=== PATIENT | male | born 1975 | race Caucasian/White ===

== ENCOUNTER 2017-04-21 19:58 | Inpatient (IN) ==
[2017-04-21] MEDS ORDERED: Vancomycin 2,000 MG in D5% in Water 500 ML IVPB ONE (20:18)
[2017-04-21] MEDS: 0.9 % Sodium Chloride 1,000 ML IVC SCH ×2 (21:12→21:25)
[2017-04-21 21:28] LABS: Basophils % 0.4 %; Eosinophils % 0.4 %; Hematocrit 47.7 % (37.5-50.1); Hemoglobin 16.1 g/dL (12.9-16.9); Immature Granulocytes % 0.7 % (0-4); Lymphocytes # 1.4 K/mcL (0.6-4.6); Lymphocytes % 14.5 %; Mean Corpuscular HGB Conc 33.8 g/dL (31.6-35.5); Mean Corpuscular Hemoglobin 28.9 pg (28.0-33.3); Mean Corpuscular Volume 85.5 fL (83.0-100.0); Mean Platelet Volume 9.4 fL (9.4-12.4); Monocytes # 0.9 K/mcL (0.0-1.3); Monocytes % 9.1 %; Platelet Count 272 K/mcL (140-400); Red Blood Count 5.58 M/mcL (4.19-5.50); Red Cell Distribution Width 13.7 % (11.5-14.5); Segmented Neutrophils % 74.9 %
[2017-04-21 21:31] LABS: INR 1.1; Prothrombin Time 12.1 Seconds (9.4-12.1)
[2017-04-21 21:34] LABS: Activated Partial Thrombo Time 31.2 Seconds (26.0-36.0)
[2017-04-21 21:42] LABS: Albumin 4.2 g/dL (3.5-5.0); Bilirubin,Direct 0.4 mg/dL (0.0-0.5); Bilirubin,Indirect 0.5 mg/dL (0.0-1.2); Bilirubin,Total 0.9 mg/dL (0.2-1.2); Calcium 9.4 mg/dL (8.6-10.8); Globulin 4.2 g/dL (2.4-3.5); Magnesium 2.6 mg/dL (1.6-2.6); Phosphorous 3.8 mg/dL (2.3-4.7); Potassium 3.7 mEq/L (3.5-4.5); Total Protein 8.4 g/dL (6.0-8.3)
[2017-04-21] MEDS ORDERED: 0.9 % Sodium Chloride 1,000 ML IVC ONE (22:13)
--- NOTE | 2017-04-21 22:59 | Emergency Department Note ---
Disposition Clinical Impression: Dehydration, Acute kidney insufficiency Diarrhea Qualifiers: Diarrhea type: unspecified type Qualified Code(s): R19.7 - Diarrhea, unspecified Hypotension Qualifiers: Hypotension type: unspecified hypotension type Qualified Code(s): I95.9 - Hypotension, unspecified Disposition: Admitted As Inpatient Condition: Good Referrals: Ollie Hinojosa MD [Primary Care Provider] - Forms: Work/School Release, ED Satisfaction Letter Time of Disposition: 23:06 General Adult HPI - General Chief complaint: ED General Medical Stated complaint: Hypotension Time Seen by Provider: 04/21/17 20:14 Source: patient, family Mode of arrival: ambulatory Limitations: no limitations Nursing Notes Reviewed: Yes Vital Signs Reviewed: Yes - History of Present Illness HPI Narrative: Patient presents emergency room from work today for evaluation of nausea vomiting diarrhea and lightheadedness along with feeling very weak. Patient has had diarrhea for the last 2-3 days it has been multiple times at the biliary enlarged water volume. Has not been able to eat or drink anything since that event. Denies any changes in medication. He is a poorly controlled hypertensive at this time. Denies any trauma or injury. Denies fevers chills chest pain shortness of breath headache vision changes but has had persistent nausea vomiting diarrhea. Onset (ago): day(s) Location: abdomen Radiation: non-radiation Pain Severity: mild Pain Scale: 0 Quality: aching Consistency: constant Improves with: nothing Worsens with: movement Associated symptoms: Reports: fever/chills, loss of appetite, malaise, nausea/ vomiting, weakness Treatments Prior to Arrival: none - Related Data Allergies Allergy/AdvReac Type Severity Reaction Status Date / Time Penicillins Allergy See Verified 04/21/17 20:00 Comments All systems ED: reviewed and negative except as stated. Review of Systems: As Per HPI Constitutional: Reports: weakness. Denies: fever, chills Cardiovascular: Denies: chest pain, palpitations, dyspnea on exertion, orthopnea , edema Respiratory: Denies: cough, dyspnea, wheezes, hemoptysis Gastrointestinal: Reports: abdominal pain, nausea, diarrhea. Denies: vomiting, constipation Genitourinary: Denies: urgency, dysuria, frequency Musculoskeletal: Denies: back pain, neck pain Neurological: Denies: headache, weakness Endocrine: Reports: fatigue Past Medical History - Past Medical History Attestation: Yes The following information was validated with the patient. Source: patient Medical history: Reports: DVT, hypertension Psychiatric history: Reports: no psych history - Social History Smoking Status: Never smoker Smokeless Tobacco Status: No Alcohol use: Reports: none Drug use: Reports: none Physical Exam - General Limitations: no limitations General appearance: alert, in no apparent distress - Neck Neck exam: Present: normal inspection, full ROM, trachea midline - Chest Chest inspection: Present: normal inspection, symmetric chest wall rise - Respiratory Respiratory exam: Present: normal lung sounds bilaterally - Cardiovascular Cardiovascular exam: Present: regular rate, normal rhythm, normal heart sounds - Abdominal Exam Abdominal exam: Present: soft, Non-Tender, normal bowel sounds. Absent: tenderness, distention, guarding, rebound, rigidity, Jones's sign, Rovsing's sign, tenderness at McBurney's Point - Extremities Exam Extremities exam: Present: normal inspection, full ROM, normal capillary refill. Absent: tenderness, pedal edema, joint swelling, calf tenderness - Back Exam Back exam: Present: normal inspection, full ROM. Absent: CVA tenderness (R), CVA tenderness (L) - Neurological Exam Neurological exam: Present: alert, oriented X3, CN II-XII intact, normal gait - Skin Skin exam: Present: warm, dry, intact, normal color Course Course Narrative: Patient seen and examined the time of arrival. See history of present illness. 42-year-old male presents to emergency room with complaint of weakness lightheadedness and hypotension. His blood pressure work was 60/40. Patient has not been able to eat or drink anything over the last several days secondary to diarrhea that has been poorly controlled. Is also intermittent nausea and some vomiting. Denies recent travel or trauma. Denies any changes in his medications. He does not take his medications as prescribed. Patient denies fevers chills chest pain shortness of breath headache vision changes at this point. His other symptoms of been persistent for 2-3 days. Patient says that he has not ate or drank anything really in the last 24 hours. Physical exam shows a well-appearing male. Large presentation. He does not appear to be any specific distress. His heart rate and vital signs are otherwise stable. Blood pressure is repeated in the room for the initial blood pressure being 108/75. Patient denies any other symptoms at this point lungs are clear heart is regular abdomen is soft she does have colicky abdominal pain at this time. Denies any bruising trauma injuries. Did not have a syncopal event 2 today. EKG collected the triage process showing sinus rhythm with stable morphology comparison EKG done on 07/01/03 patient review the presentation symptoms and history. He again describes generalized malaise weakness belly discomfort and persistent diarrhea. He also described the weakness today and tachycardia when he went to be evaluated at the health providers office at his job. Patient will be evaluated and provided with fluids by IV access here today a CBC chemistry urinalysis chest x-ray and EKG along with troponin ordered at this point. We will continue to monitor his treatment course is completed. Patient will most likely need admission if symptoms do not get better or we have definitive etiology to his symptom presentation this time. Patient's code was explained at this point - Reevaluation(s) Reevaluation #1: Patient found to have relatively normal laboratory workup at this time except for significantly elevated creatinine with decreased GFR. Patient has had almost a tripling in his creatinine at this time based on the lab today collected by his kidney doctor several weeks to several months ago. Patient provided with a second liter of fluids here this time. He feels better. He has not had an episode of diarrhea while here. The rest of his laboratory workup was otherwise benign. Patient not discussed in length at the bedside my recommendation for admission secondary to the dehydration causing kidney insufficiency. Patient understands this and appreciates our concern. After a conversation with his family he decided that it would be better for him to stay in the hospital for evaluation. Hospitalist patient this time for what appears to be dehydration secondary to diarrhea causing acute kidney insufficiency at this point. He is currently under the take care of Dr. Pichardo. No further issues or recommendations at this time. Disposition pending admission process. Again patient does not have any specific physical exam findings are concerning for surgical pathology. No imaging ordered at this time Time: 23:03 Reevaluation #2: Patient discussed with the hospitalist Dr. Egan. We reviewed the presentation symptoms medical intervention as well as evaluation. He recommended adding another 2 L of fluid and air be happy to start maintenance fluids on the floor this time. Patient is otherwise resting comfortably with stable examination presentation. We will continue monitoring into the admission process is completed Time: 23:14 Vital Signs Temperature 98.0 F 04/21/17 20:00 Pulse Rate 100 04/21/17 20:00 Respiratory Rate 16 04/21/17 20:00 Blood Pressure 87/64 04/21/17 20:00 O2 Sat by Pulse Oximetry 97 04/21/17 20:00 Temperature 98.0 F 04/21/17 20:00 Pulse Rate 95 04/21/17 21:17 Respiratory Rate 16 04/21/17 21:17 Blood Pressure 108/76 04/21/17 21:17 O2 Sat by Pulse Oximetry 95 04/21/17 21:17 Oxygen Delivery Oxygen Delivery Room Air Medical Decision Making - MDM Narrative Medical decision making narrative: Acute kidney insufficiency, diarrhea, dehydration - Medical Records Medical records reviewed: Yes I reviewed the patient's medical records. - Lab Data Lab results reviewed: Yes I reviewed the patient's lab results. Result diagrams: 04/21/17 21:13 04/21/17 21:13 Lab Results 04/21/17 04/21/17 04/21/17 Range/Units 21:13 21:13 21:13 WBC 9.4 (4.3-11.1) K/mcL RBC 5.58 H (4.19-5.50) M/mcL Hgb 16.1 (12.9-16.9) g/dL Hct 47.7 (37.5-50.1) % MCV 85.5 (83.0-100.0) fL MCH 28.9 (28.0-33.3) pg MCHC 33.8 (31.6-35.5) g/dL RDW 13.7 (11.5-14.5) % Plt Count 272 (140-400) K/mcL MPV 9.4 (9.4-12.4) fL Immature Gran % 0.7 (0-4) % Seg Neutrophils % 74.9 % Lymphocytes % 14.5 % Monocytes % 9.1 % Eosinophils % 0.4 % Basophils % 0.4 % Neutrophils # 7.0 (1.6-8.9) K/mcL Lymphocytes # 1.4 (0.6-4.6) K/mcL Monocytes # 0.9 (0.0-1.3) K/mcL Eosinophils # 0.0 (0.0-0.6) K/mcL Basophils # 0.0 (0.0-0.2) K/mcL PT 12.1 (9.4-12.1) Seconds INR 1.1 APTT 31.2 (26.0-36.0) Seconds Sodium 131 L (136-145) mEq/L Potassium 3.7 (3.5-4.5) mEq/L Chloride 99 (98-109) mEq/L Carbon Dioxide 18 L (19-29) mEq/L BUN 50 H (8-26) mg/dL Creatinine 3.61 H (0.72-1.25) mg/dL Est GFR ( Amer) 23 L (> 60) Est GFR (Non-Af Amer) 19 L (> 60) BUN/Creatinine Ratio 14 (6-26) Glucose 111 H (70-99) mg/dL Calculated Osmolality 286 (280-300) Lactic Acid (0.5-2.2) mmol/L Calcium 9.4 (8.6-10.8) mg/dL Phosphorus 3.8 (2.3-4.7) mg/dL Magnesium 2.6 (1.6-2.6) mg/dL Total Bilirubin 0.9 (0.2-1.2) mg/dL Direct Bilirubin 0.4 (0.0-0.5) mg/dL Indirect Bilirubin 0.5 (0.0-1.2) mg/dL AST 55 H (5-34) Units/L ALT 57 H (0-55) Units/L Alkaline Phosphatase 77 (38-126) Units/L Troponin I (0-0.03) ng/mL Serum Total Protein 8.4 H (6.0-8.3) g/dL Albumin 4.2 (3.5-5.0) g/dL Globulin 4.2 H (2.4-3.5) g/dL Albumin/Globulin Ratio 1.0 L (1.1-2.2) 04/21/17 04/21/17 Range/Units 21:13 21:13 WBC (4.3-11.1) K/mcL RBC (4.19-5.50) M/mcL Hgb (12.9-16.9) g/dL Hct (37.5-50.1) % MCV (83.0-100.0) fL MCH (28.0-33.3) pg MCHC (31.6-35.5) g/dL RDW (11.5-14.5) % Plt Count (140-400) K/mcL MPV (9.4-12.4) fL Immature Gran % (0-4) % Seg Neutrophils % % Lymphocytes % % Monocytes % % Eosinophils % % Basophils % % Neutrophils # (1.6-8.9) K/mcL Lymphocytes # (0.6-4.6) K/mcL Monocytes # (0.0-1.3) K/mcL Eosinophils # (0.0-0.6) K/mcL Basophils # (0.0-0.2) K/mcL PT (9.4-12.1) Seconds INR APTT (26.0-36.0) Seconds Sodium (136-145) mEq/L Potassium (3.5-4.5) mEq/L Chloride (98-109) mEq/L Carbon Dioxide (19-29) mEq/L BUN (8-26) mg/dL Creatinine (0.72-1.25) mg/dL Est GFR ( Amer) (> 60) Est GFR (Non-Af Amer) (> 60) BUN/Creatinine Ratio (6-26) Glucose (70-99) mg/dL Calculated Osmolality (280-300) Lactic Acid 2.2 (0.5-2.2) mmol/L Calcium (8.6-10.8) mg/dL Phosphorus (2.3-4.7) mg/dL Magnesium (1.6-2.6) mg/dL Total Bilirubin (0.2-1.2) mg/dL Direct Bilirubin (0.0-0.5) mg/dL Indirect Bilirubin (0.0-1.2) mg/dL AST (5-34) Units/L ALT (0-55) Units/L Alkaline Phosphatase (38-126) Units/L Troponin I 0.02 (0-0.03) ng/mL Serum Total Protein (6.0-8.3) g/dL Albumin (3.5-5.0) g/dL Globulin (2.4-3.5) g/dL Albumin/Globulin Ratio (1.1-2.2) - EKG Data EKG #1 EKG attestation: Yes I reviewed and interpreted this EKG. EKG shows normal: sinus rhythm, axis, intervals, QRS complexes, ST-T waves Rate: normal Rhythm: NSR [place]/QRS: normal Voltage: c/w LVH T wave inversions noted in: I, aVL When compared to previous EKG there are: no significant changes Interpretation: no acute changes, unchanged when compared to prior tracing (date ) (07/01/03)
[2017-04-21] MEDS ORDERED: 0.9 % Sodium Chloride 1,000 ML IVC SCH (23:15)
[2017-04-21] MEDS ORDERED: Naloxone 0.4 MG/ML INJ IVP PRN (23:59)
[2017-04-21] MEDS ORDERED: Ondansetron ODT 4 MG TAB.RAPDIS SL PRN (23:59)
--- NOTE | 2017-04-22 00:06 | Internal Med History&Physical ---
<Bubba Holt - Last Filed: 04/22/17 00:35> Date of Encounter: 04/22/17 Time of Encounter: 00:04 Assessment and Plan (1) Diarrhea Current visit: Yes Status: Acute unclear etiology infectious (viral, bacterial), food poisioning (ate mushrooms at [place] [employer]), no recent travel, sick contacts, antibiotic use Tachycardic on admission. Does not need any other serous criteria White blood cell count normal Afebrile hgb stable Patient eating [employer] burger and fries when entering room most likely viral gastroenteritis Plan: IV fluids,fbot, regular diet, BMP, CBC Stool panel, blood cultures, C. difficile, ova parasite exam GI prophylaxis Will recommend outpatient GI consult and colonoscopy as patient has had multiple bouts of diarrhea in the past. 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 (3) Dehydration Current visit: Yes Status: Acute Second issue diarrhea Plan: Fluids. (4) Hypotension Current visit: Yes Status: Acute Patient reports blood pressure was 60/40 at work On arrival to the ER blood pressure was 87/64 Patient has a history of hypertension and is on lisinopril hydrochlorothiazide, amlodipine Secondary to dehydration from diarrhea Plan: IV fluids Hold home BP meds. Qualifiers: Hypotension type: other hypotension type Qualified Code(s): I95.89 - Other hypotension Internal Medicine - H&P: HPI Chief complaint: lightheadedness Admitted From: Home Plans for Post Hospital Care: Home History of present illness: Mr. Almanza is a 42 year old male presents with chief complaint of lightheadedness and hypotension. Patient states for the last 3 days he has had nonstop diarrhea. Reports cramping abdominal pain, tenesmus with reflief once he has bowel movement. States his anus is on fire. Last meal before he started having diarrhea was he ate mushrooms at a state fair and 6 hours later had these symptoms. Patient eating [employer] burger and fries when entering room. Was not in any distress. He denies fever, chills nausea and vomiting, travel, sick contacts. Denies anybody having the same symptoms around him. There is watery , mucousy, and he noticed couple drops of blood this morning. Last diarrhea was this morning. States at work his blood pressure today was 60/40. He has not been able to eat or drink anything in the last 24 hours. Patient also reports syncopal episode about 20-25 minutes. Denies any trauma. Denies recent antibiotic use. Denies previous colonoscopy. Denies family history of GI issues. Patient states he has had this type of diarrhea before but usually self- limiting. He has never been hospitalized for this before. He notices it is associated with eating greasy food. Past Med Surg Social Fam HX - Past Medical History Medical history: hypertension, other (CKD III) Psychiatric history: no psych history - Past Surgical History Surgical History: no surgical history - Social History Smoking Status: Never smoker Smokeless Tobacco Status: No Alcohol use: none Drug use: none - Family History Mother Living Status: Still Living Hx Family Cardiac Disorders: Yes (Hypertension) Brother Living Status: Still Living Hx Family Cardiac Disorders: Yes (Hypertension) Father Hx Family Cardiac Disorders: Yes (Hypertension) Grandfather Hx Family Cardiac Disorders: Yes (Coronary artery disease, hypertension, diabetes) Internal Medicine - H&P: Meds Allergies Penicillins Allergy (Verified 04/21/17 20:00) See Comments All Systems PM: A 10-system review of systems was performed and is negative for pertinent findings except as documented above in the HPI. Review of systems: Constitutional: Denies fever, chills HEENT: Denies headache, vision changes, neck pain, sore throat, rhinorrhea Heart: Denies chest pain palpitations Lungs: denies cough. Reports chronic shortness of breath Abdomen: Cramping abdominal pain with diarrhea. Denies nausea and vomiting Back: Denies back pain Kidney: Denies dysuria, hematuria Extremities: Denies swelling, pain Neuro: Denies numbness, and tingling - Constitutional Vitals: Temp Pulse Resp BP Pulse Ox 98.0 F 95 16 117/69 95 04/21/17 20:00 04/21/17 21:17 04/21/17 23:30 04/21/17 23:30 04/21/17 21:17 - Other Additional findings: General: Obese male Without distress HEENT: Head atraumatic, normocephalic, EOMI, PERRLA, neck nontender to palpation , absent Lymphadenopathy, Moist Mucous Membranes, Heart: Regular rate and rhythm with no murmur Lungs: Clear to auscultation bilaterally Abdomen: Soft nontender, non distended positive bowel sounds Extremities: Absent pedal edema, Neuro: Cranial nerves II through XII intact, sensation equal bilaterally, strength upper and lower extremity 5/5, alert oriented 3 Vascular: Pedal and radial pulses 2 out of 4 Internal Med - H&P Results - Labs CBC & Chem 7: 04/21/17 21:13 04/21/17 21:13 <Kena Duong - Last Filed: 04/22/17 01:08> Date of Encounter: 04/22/17 Internal Medicine - H&P: HPI History of present illness: Mr. Almanza is a 42 year old male All Systems PM: A 10-system review of systems was performed and is negative for pertinent findings except as documented above in the HPI. - Constitutional Vitals: Temp Pulse Resp BP Pulse Ox 98.2 F 90 18 142/59 100 04/22/17 00:33 04/22/17 00:33 04/22/17 00:33 04/22/17 00:33 04/22/17 00:33 Internal Med - H&P Results - Labs CBC & Chem 7: 04/21/17 21:13 04/21/17 21:13 - Attending Attestation 42-year-old male who developed watery diarrhea since yesterday with some diarrhea this morning. Diarrhea mostly watery but with some blood streaking in later episodes. Associated with dizziness and presyncopal episodes. In the ED was found to be dehydrated with acute on chronic kidney injury(sees Dr. Riley). Likely due to prerenal volume loss. ROS 14 point review of systems reviewed as best as possible given presentation. Pertinent positive or negative as per HPI or otherwise reviewed as negative General - AAO x 3 Psych - Appropriate affect/speech. No agitation Eyes - LATONYA. Eye lids intact. No scleral icterus ENT - Oral mucosa pink, dentition intact. External ear clear/dry/intact. No thyromegaly Lymphatics - No cervical/inguinal lympadenopathy Neuro - No gross peripheral or central neuro deficits with intact CN 2-12 exam Heart - Sinus. RRR. S1 and S2 present. No added HS/murmurs appreciated. No elevated JVD appreciated. No calf swellings/erythema Lung - Adequate air entry b/l, No crackes/wheezes appreciated GI - Soft, non-tender. No hepatosplenomegaly/ascities. BS+ - No CVA/suprapubic tenderness or palpable bladder distension Skin - Intact. No rash/petechiae/ecchymosis. Warm extremities MSK - Joints with normal ROM. No joint swellings Hypotension Pre-syncope HUMBERTO - re-renal 2/2 hypovolemia from fluid loss (Diarrhea with decreased PO intake) suspect viral gastroenteritis - IVF, bolus to get 4 L total - check orthostats - hold anti-HTN - monitor diarrhea - stool studies pend
[2017-04-22 01:05] LABS: Bilirubin,Urine Negative (Negative); Blood,Urine Trace (Negative); Clarity,Urine Clear (Clear); Color,Urine Yellow (Yellow); Glucose,Urine (UA) Normal (Normal); Ketones,Urine Negative (Negative); Leukocyte Esterase,Urine Negative (Negative); Nitrite,Urine Negative (Negative); PH,Urine 5.5 pH Units (5.0-8.0); Protein,Urine 30 mg/dL (Neg-Trace); Specific Gravity,Urine 1.025 (1.010-1.025); Urobilinogen,Urine Normal (Normal)
[2017-04-22 01:07] LABS: Squamous Epithelial Cell,Urine Moderate per lpf (None-Few); WBC,Urine 0-3 per hpf (0-3)
[2017-04-22 01:17] LABS: Bacteria,Urine Few per hpf (None-Few); Hyaline Casts,Urine Moderate per lpf (None-Few); Mucus,Urine Moderate (Few)
[2017-04-22] MEDS: 0.9 % Sodium Chloride 1,000 ML IVC SCH ×3 (02:09→21:46)
[2017-04-22 05:21] LABS: Basophils # 0.1 K/mcL (0.0-0.2); Basophils % 0.7 %; Eosinophils # 0.2 K/mcL (0.0-0.6); Eosinophils % 2.3 %; Hematocrit 40.8 % (37.5-50.1); Immature Granulocytes % 0.6 % (0-4); Lymphocytes # 2.1 K/mcL (0.6-4.6); Lymphocytes % 29.9 %; Mean Corpuscular HGB Conc 33.8 g/dL (31.6-35.5); Mean Corpuscular Hemoglobin 29.2 pg (28.0-33.3); Mean Corpuscular Volume 86.4 fL (83.0-100.0); Mean Platelet Volume 9.7 fL (9.4-12.4); Monocytes # 0.9 K/mcL (0.0-1.3); Monocytes % 12.4 %; Neutrophils # 3.8 K/mcL (1.6-8.9); Platelet Count 210 K/mcL (140-400); Red Blood Count 4.72 M/mcL (4.19-5.50); Red Cell Distribution Width 13.9 % (11.5-14.5); Segmented Neutrophils % 54.1 %
[2017-04-22 05:49] LABS: Hemoglobin 13.8 g/dL (12.9-16.9)
[2017-04-22] MEDS ORDERED: *HR* Heparin 5,000 UNIT/ML VIAL SQ SCH (06:00)
[2017-04-22] MEDS: Famotidine 20 MG/2 ML VIAL IVP SCH ×2 (06:02→17:08)
[2017-04-22 08:14] LABS: Calcium 8.2 mg/dL (8.6-10.8); Magnesium 2.2 mg/dL (1.6-2.6); Potassium 3.7 mEq/L (3.5-4.5)
--- NOTE | 2017-04-22 13:35 | Internal Med Progress Note ---
Date of Encounter: 04/22/17 Time of Encounter: 13:33 - Assessment and plan (1) Near syncope Current Visit: Yes Status: Acute Assessment and plan: due to dehydration with diarrhea and taking BP medications including HCTZ negative troponin no further work up needed cont IV hydration (2) Bright red blood per rectum Current Visit: Yes Status: Acute Assessment and plan: Mostly due to internal hemorrhoids will cont close monitoring his Hb / Hct consult GI (3) Diarrhea Current Visit: Yes Status: Acute Assessment and plan: his history sounds more like IBS also concern for food poisoning No signs of infection cont IV hydration Qualifiers: Diarrhea type: presumed infectious Qualified Code(s): A09 - Infectious gastroenteritis and colitis, unspecified (4) Acute kidney insufficiency Current Visit: Yes Status: Acute Assessment and plan: Due to hypovolemia - with dehydration and medication - HCTZ held diuretics cont IV hydration improving (5) Hypotension Current Visit: Yes Status: Acute Assessment and plan: due dehdyration resolved Since his BP elevated.. will resume his home med Amlodipine Qualifiers: Hypotension type: other hypotension type Qualified Code(s): I95.89 - Other hypotension - Subjective Interval history: This is a 42 y/o M with known PMH of HTN, IBS who had profuse diarrhea 2 days ago, also noticed bright red blood per retum x 1 y/d came to ER with severe light headedness and hypotension. Pt stated he is feeling better today. no more BM since y/d morning. However he did noticed some blood per rectum this morning. - Constitutional Vitals: Temp Pulse Resp BP Pulse Ox 98.1 F 71 16 164/94 96 04/22/17 05:22 04/22/17 11:33 04/22/17 05:22 04/22/17 11:34 04/22/17 05:22 General appearance: Present: A&O X 3, morbidly obese, no acute distress - Head Head exam: Present: atraumatic, normal inspection - Neck Neck exam general surgery: Present: supple - Respiratory Respiratory exam: Present: decreased breath sounds, wheezes. Absent: respiratory distress, rhonchi - Cardiovascular Cardiovascular exam: Present: RRR, +S1, +S2. Absent: diastolic murmur, gallop, rubs, systolic murmur - GI/Abdominal GI/Abdominal exam: Present: distended, soft. Absent: rebound, rigid, tenderness - Extremities Exam Extremities exam: Absent: calf tenderness, pedal edema, tenderness - Neurological Exam Neurological exam: Present: alert, oriented X3 - Psychiatric Psychiatric exam: Present: normal affect, normal mood Internal Medicine: Result - Labs CBC & Chem 7: 04/22/17 04:35 04/22/17 07:05 Labs: Short CBC 04/22/17 Range/Units 04:35 WBC 7.1 (4.3-11.1) K/mcL Hgb 13.8 D (12.9-16.9) g/dL Hct 40.8 (37.5-50.1) % Plt Count 210 (140-400) K/mcL Neutrophils # 3.8 (1.6-8.9) K/mcL BMP 04/22/17 07:05 Sodium 136 Potassium 3.7 Chloride 104 Carbon Dioxide 24 BUN 43 H Creatinine 2.17 H Glucose 87 Calcium 8.2 L Urine 04/22/17 Range/Units 00:35 Urine Color Yellow (Yellow) Urine Clarity Clear (Clear) Urine pH 5.5 (5.0-8.0) pH Units Ur Specific [place] 1.025 (1.010-1.025) Urine Protein 30 H (Neg-Trace) mg/dL Urine Glucose (UA) Normal (Normal) mg/dL - ABG Interpretation ABG results: PT/INR, D-dimer PT 12.1 Seconds (9.4-12.1) 04/21/17 21:13 Consult Discharge Plan - Plan Referrals: Ollie Hinojosa MD [Primary Care Provider] -
[2017-04-22] MEDS ORDERED: SODIUM CHLORIDE/NAHCO3/KCL/PEG 4,000 ML SOLN.RECON PO ONE (13:46)
--- NOTE | 2017-04-22 14:47 | Electrocardiograph Report ---
[place] [id number] Test Date: 2017-04-21 Pat Name: Johnson Almanza Department: 105 Room: 2N4 Gender: M [employer] Supervisor: ELIZABETH : [id number] Requested By: German Qiu Order Number: [id number] Reading MD: Sil Valdivia Measurements Intervals [place] Rate: 96 P: 60 NM: 136 QRS: -19 QRSD: 114 T: 96 QT: 344 QTc: 397 Interpretive Statements SINUS RHYTHM WITH OCCASIONAL SUPRAVENTRICULAR PREMATURE COMPLEXES LEFT VENTRICULAR HYPERTROPHY AND ST-T CHANGE [VOLTAGE CRITERIA PLUS ST/T ABNORMALITY] Electronically Signed On 04-22-2017 14:46:13 EDT by Sil Valdivia
[2017-04-22] MEDS: amLODIPine 5 MG TABLET PO SCH (17:08)
[2017-04-22 17:59] LABS: Hematocrit 43.2 % (37.5-50.1); Hemoglobin 14.3 g/dL (12.9-16.9)
[2017-04-23 03:02] LABS: Basophils # 0.1 K/mcL (0.0-0.2); Basophils % 0.9 %; Eosinophils # 0.1 K/mcL (0.0-0.6); Eosinophils % 2.2 %; Hematocrit 41.7 % (37.5-50.1); Hemoglobin 13.8 g/dL (12.9-16.9); Immature Granulocytes % 0.6 % (0-4); Immature Platelets 1.8 % (1.1-6.1); Lymphocytes # 2.3 K/mcL (0.6-4.6); Lymphocytes % 41.9 %; Mean Corpuscular HGB Conc 33.1 g/dL (31.6-35.5); Mean Corpuscular Hemoglobin 29.2 pg (28.0-33.3); Mean Corpuscular Volume 88.2 fL (83.0-100.0); Mean Platelet Volume 9.4 fL (9.4-12.4); Monocytes # 0.6 K/mcL (0.0-1.3); Monocytes % 10.1 %; Neutrophils # 2.4 K/mcL (1.6-8.9); Platelet Count 197 K/mcL (140-400); Red Blood Count 4.73 M/mcL (4.19-5.50); Red Cell Distribution Width 13.6 % (11.5-14.5); Segmented Neutrophils % 44.3 %
[2017-04-23 03:12] LABS: Hemoglobin A1C 5.5 %
[2017-04-23 03:16] LABS: BUN/Creatinine Ratio 17 (6-26); Blood Urea Nitrogen 24 mg/dL (8-26); Calcium 8.4 mg/dL (8.6-10.8); Carbon Dioxide 24 mEq/L (19-29); Chloride 107 mEq/L (98-109); Glucose 92 mg/dL (70-99); Osmolality,Calculated 290 (280-300); Potassium 3.9 mEq/L (3.5-4.5); Sodium 138 mEq/L (136-145); eGFR For African Americans > 60 (> 60); eGFR For Non-African Americans 55 (> 60)
[2017-04-23 03:18] LABS: Chol/HDL Ratio 3.9 (0-4.9)
[2017-04-23] MEDS: Famotidine 20 MG/2 ML VIAL IVP SCH (06:17)
[2017-04-23] MEDS: 0.9 % Sodium Chloride 1,000 ML IVC SCH (08:15)
--- NOTE | 2017-04-23 10:39 | Gastroenterology Consult Note ---
Date of Encounter: 04/23/17 Time of Encounter: 09:00 - Assessment and plan (1) Bright red blood per rectum Current Visit: Yes Status: Acute Assessment and plan: This patient who does has a history of diarrhea on and off but in the last couple of days had more diarrhea causing dehydration and acute kidney injury. Symptoms are suspicious for acute gastroenteritis but he did also had some blood in the stool on and off. Patient will have a colonoscopy done both for the diarrhea and also for his bleeding (2) Dehydration Current Visit: Yes Status: Acute (3) Acute kidney insufficiency Current Visit: Yes Status: Acute - Time Spent With Patient Total time spent is greater than 50% in coordination of care (as documented) at patient's floor/unit and/or counseling patient: GI History of Present Illness - Data of Consult Consult date: 04/23/17 Requesting Physician: Chelsey Marcus MD - Consult Narrative Reason for consult: rectal bleeding History of present illness: Mr. Almanza is a 42 year old male was admitted because of dizziness and rectal bleeding. Was complaining of lightheadedness and was found to be in hypotension. Patient states for the last 3 days he had nonstop diarrhea. Reports cramping abdominal pain, tenesmus with reflief once he has bowel movement.. Last meal before he started having diarrhea was he [place] and 6 hours later had these symptoms. States at work his blood pressure was in 60s. Has been seeing some blood in the stool on and off more so in the form of drops. For a while he has on-and-off diarrhea and he thinks that this is due to his medication that he takes for blood pressure but other times he also has constipation. Past Med Surg Social Fam HX - Past Medical History Medical history: hypertension, other Psychiatric history: no psych history - Past Surgical History Surgical History: no surgical history - Social History Smoking Status: Never smoker Smokeless Tobacco Status: No Alcohol use: none Drug use: none - Family History Mother Living Status: Still Living Hx Family Cardiac Disorders: Yes (Hypertension) Brother Living Status: Still Living Hx Family Cardiac Disorders: Yes (Hypertension) Father Living Status: Still Living Hx Family Cardiac Disorders: Yes (Hypertension) Grandfather Living Status: Cause of : Melanoma Hx Family Cardiac Disorders: Yes (Coronary artery disease, hypertension, diabetes) Review of Systems: GI: as per [place] GENERAL: denies fever, has some chills EYES: denies yellow discoloration ENT: denies pain with swallowing or difficulty swallowing CARDIO: denies chest pain, palpitations RESP: Shortness of breath with exertion : denies change in color of urine NEURO: denies any weakness HEME: Denies any bruising MS: denies joint pain, joint swelling or back pain. DERM: denies rash or itching PSYCH: complaing of felling depress after back to work. - Constitutional Vitals: Temp Pulse Resp BP Pulse Ox 97.8 F 69 16 133/74 98 04/23/17 07:52 04/23/17 07:52 04/23/17 07:52 04/23/17 07:52 04/23/17 07:52 - Head Head exam: Present: atraumatic - Eye Eye exam: Present: normal appearance - Respiratory Additional comments: bilateral good air entry - Cardiovascular Cardiovascular exam: Present: +S1, +S2 - GI/Abdominal Additional comments: Soft, has mild tenderness in the left upper quadrant but per patient he feels that tenderness whenever he push hard for a while - Extremities Exam Extremities exam: Present: full ROM - Neurological Exam Neurological exam: Present: oriented X3 - Skin Skin exam: Present: dry, warm Results - Labs CBC & Chem 7: 04/23/17 02:44 04/23/17 02:44 Labs: Last Result Calcium 8.4 mg/dL (8.6-10.8) L 04/23/17 02:44 Troponin I 0.02 ng/mL (0-0.03) 04/21/17 21:13 Triglycerides 132 mg/dL (< 150) 04/23/17 02:44 Entire Visit Hgb 13.8 g/dL (12.9-16.9) 04/23/17 02:44 Hct 41.7 % (37.5-50.1) 04/23/17 02:44 PT 12.1 Seconds (9.4-12.1) 04/21/17 21:13 Total Bilirubin 0.9 mg/dL (0.2-1.2) 04/21/17 21:13 AST 55 Units/L (5-34) H 04/21/17 21:13 ALT 57 Units/L (0-55) H 04/21/17 21:13 - ABG ABG results: PT/INR, D-dimer PT 12.1 Seconds (9.4-12.1) 04/21/17 21:13 Consult Discharge Plan - Plan Referrals: Ollie Hinojosa MD [Primary Care Provider] -
[2017-04-23] MEDS ORDERED: *HR* FentaNYL (PF) 100 MCG/2 ML VIAL ONE (10:48)
[2017-04-23] MEDS ORDERED: *HR* Midazolam HCl 5 MG/5 ML VIAL IVP ONE (10:48)
[2017-04-23] MEDS ORDERED: Simethicone 40 MG/0.6 ML MLS IR ONE (11:02)
--- NOTE | 2017-04-23 11:03 | Pre-Sedation Evaluation ---
Pre-sedation evaluation - Pre-sedation checklist Date of procedure: 04/23/17 Recent Vitals: Last Vital Signs Temp 97.8 F 04/23/17 07:52 Pulse 69 04/23/17 07:52 Resp 16 04/23/17 07:52 BP 133/74 04/23/17 07:52 Pulse Ox 98 04/23/17 07:52 ASA Classification *see protocol: CLASS II-Mild systemic disease Plan of Care: Pt appropriate candidate for procedure/moderate/conscious sedation , Risks/benefits of procedure/sedation discussed w/ patient/family
[2017-04-23] MEDS: *HR* Midazolam HCl 5 MG/5 ML VIAL IVP PRN ×3 (11:09→11:12)
[2017-04-23] MEDS: *HR* FentaNYL (PF) 100 MCG/2 ML VIAL IVP PRN ×3 (11:09→11:13)
--- NOTE | 2017-04-23 13:01 | Discharge Summary ---
Date of Encounter: 04/23/17 Time of Encounter: 12:55 - Discharge Diagnosis (1) Near syncope Priority: Secondary Status: Resolved (2) Bright red blood per rectum Priority: Primary Status: Resolved (3) Diarrhea Priority: Secondary Status: Resolved Qualifiers: Diarrhea type: presumed infectious Qualified Code(s): A09 - Infectious gastroenteritis and colitis, unspecified (4) Acute kidney insufficiency Priority: Secondary Status: Acute (5) Hypotension Priority: Primary Status: Acute Qualifiers: Hypotension type: other hypotension type Qualified Code(s): I95.89 - Other hypotension - Discharge Medications Prescriptions: Lisinopril [Zestril] 20 mg PO DAILY #30 tablet Home Medications: amLODIPine [Norvasc] 5 mg PO DAILY 04/22/17 [History] Lisinopril [Zestril] 20 mg PO DAILY #30 tablet 04/23/17 [Rx] Allergies/Adverse Reactions: Allergies Penicillins Allergy (Verified 04/21/17 20:00) See Comments Date of admission: 04/22/17 02:22 Primary care physician: Ollie Hinojosa MD Consults: 04/22/17 13:42 Consult to Gastroenterology [CONS] Routine Consulting Provider: Gastroenterology Sushma Reason for Consult: bright red blood per rectum Call Completed: Yes - Patient Status Disposition: Home, Self-Care Condition: Good - Discharge Instructions Follow Up With: Ollie Hinojosa MD [Primary Care Provider] - Tobias Tejeda MD [Partnered Physician] - Additional Instructions: f/u with GI Dr. Tejeda in 2 weeks - Diet and Activity Activity: increase activity as tolerated Diet: low salt diet Hospital course: This is a 42 y/o M with known PMH of HTN, IBS who had profuse diarrhea 2 days ago, also noticed bright red blood per rectum x 1 y/d came to ER with severe light headedness and hypotension. Pt was admitted in the hospital and started him aggressive IV hydration. His symptoms improved, his BP is now in 140's. His Serum Cr also started improving came down to 1.4. So recommend stop taking HCTZ until he sees his PCP. Also he was taking too many BP meds including Norvasc, Lisinopril, Hydralazine and HCTZ. Recommend him to hold on Hydralazine also until he sees his PCO in 5-7 days. Regarding his bright red blood per rectum, we consulted GI who did colonoscopy today - mild non hemorrhagic internal hemorrhoids were found. Pt started tolerating PO intake well, he does not have any more bright red blood per rectum and his Hb is stable. So will d/c him home today in stable condition. - Time Spent with Patient Total time spent providing and/or coordinating discharge services: - Constitutional Vitals: Temp Pulse Resp BP Pulse Ox 97.5 F L 72 17 142/91 93 04/23/17 11:52 04/23/17 11:52 04/23/17 11:52 04/23/17 11:52 04/23/17 11:52 General appearance: Present: A&O X 3, morbidly obese, no acute distress - Head Head exam: Present: atraumatic, normal inspection - Respiratory Respiratory exam: Present: decreased breath sounds. Absent: accessory muscle use, rales, rhonchi, wheezes - Cardiovascular Cardiovascular exam: Present: RRR, +S1, +S2. Absent: diastolic murmur, gallop, rubs, systolic murmur - GI/Abdominal GI/Abdominal exam: Present: distended, normal bowel sounds, soft. Absent: rebound, rigid - Extremities Exam Extremities exam: Absent: calf tenderness, pedal edema, tenderness - Psychiatric Psychiatric exam: Present: normal affect, normal mood
[2017-04-23] MEDS: amLODIPine 5 MG TABLET PO SCH (13:09)
[2017-04-23 18:00] VITALS: BP 145/79
== END 2017-04-23 15:15 | disposition home or self-care (01) | DRG 392 ==
LOC: 2NENU 19:58 → EMEROO 19:58 → 2NENU 23:48
PROVIDERS: ADMIT Internal Medicine; ATTEND Internal Medicine
PROC: ENDOCBX (2017-04-23 12:00)